=== PATIENT | male | born 1970 | race Caucasian/White ===

== ENCOUNTER 2018-03-04 08:27 | Observation (INO) | payer OTHER ==
[~2018-03-04] VITALS: Ht 177.8 cm; Wt 161.3 kg
[2018-03-04] MEDS ORDERED: ASPIRIN 325 MG TAB PO ONE (08:45)
[2018-03-04] MEDS ORDERED: NITROGLYCERIN 0.4 MG SUBL SL ONE (08:45)
[2018-03-04 09:01] LABS: BASOPHILS # (AUTO) 0.1 (0.0-0.1); BASOPHILS % 0.5 % (0.0-1.0); EOSINOPHILS # (AUTO) 0.3 (0.0-0.4); EOSINOPHILS % 2.5 % (0.0-6.0); HEMATOCRIT 42.8 % (38.2-49.6); HEMOGLOBIN 14.3 g/dL (14.0-18.0); LYMPHOCYTES # (AUTO) 2.3 (1.0-3.2); LYMPHOCYTES % 22.2 % (18.0-39.1); MEAN CORPUSCULAR HEMOGLOBIN 28.1 pg (28-32); MEAN CORPUSCULAR HGB CONC 33.4 g/dL (31-35); MEAN CORPUSCULAR VOLUME 84.1 fL (81-99); MONOCYTES # (AUTO) 0.8 (0.2-0.8); MONOCYTES % 7.4 % (4.4-11.3); NEUTROPHILS # (AUTO) 6.9 (2.1-6.9); PLATELET COUNT 230 x10e3/uL (140-360); RED BLOOD COUNT 5.09 x10e6/uL (4.3-5.7); RED CELL DISTRIBUTION WIDTH 12.8 % (11.7-14.4)
[2018-03-04] MEDS ORDERED: LISINOPRIL-HCT1 EACH PO (09:03)
[2018-03-04] MEDS ORDERED: PRILOSEC OTC20 MG PO (09:03)
[2018-03-04] MEDS ORDERED: ALEVE220 M1 PO (09:03)
[2018-03-04 09:14] LABS: ALANINE AMINOTRANSFERASE 25 IU/L (0-55); ALBUMIN 3.9 g/dL (3.5-5.0); ALBUMIN/GLOBULIN RATIO 0.9 (0.8-2.0); ALKALINE PHOSPHATASE 84 IU/L (40-150); ANION GAP 21.2 mmol/L (8-16); BLOOD UREA NITROGEN 18 mg/dL (7-26); BUN/CREATININE RATIO 17 (6-25); CALCIUM 8.9 mg/dL (8.4-10.2); CARBON DIOXIDE 18 mmol/L (22-29); CHLORIDE 99 mmol/L (98-107); CHOL/HDL RATIO 4.5 (3.9-4.7); CHOLESTEROL 220 MD/DL (0-199); CREATININE, SERUM 1.07 mg/dL (0.72-1.25); EST GLOMERULAR FILTRATION RATE > 60 ML/MIN (60-); GLUCOSE 115 mg/dL (74-118); HDL CHOLESTEROL 49 MG/DL (40-60); LDL CHOLESTEROL 130 MG/DL (60-130); POTASSIUM 4.2 mmol/L (3.5-5.1); SODIUM 134 mmol/L (136-145); TRIGLYCERIDES 204 MG/DL (0-149)
[2018-03-04 09:21] LABS: INR 0.99
--- NOTE | 2018-03-04 09:22 | Diagnostic Imaging Report ---
PROCEDURE: Frontal and lateral views of the chest. COMPARISON: None. INDICATIONS: CHEST PAIN, SHORTNESS OF BREATH FINDINGS: Lines/tubes: None. Lungs: Low lung volumes. There is no evidence of pneumonia or pulmonary edema. Pleura: There is no pleural effusion or pneumothorax. Heart and mediastinum: The cardiomediastinal silhouette is unremarkable. Bones: No acute bony abnormality. IMPRESSION: No acute radiographic abnormality. Dictated by: BEAU CHAPIN M.D. on 03/04/2018 at 9:30 Electronically approved by: BEAU CHAPIN M.D. on 03/04/2018 at 9:30
[2018-03-04] MEDS ORDERED: HYDROCODONE/APAP 5MG-325MG TAB PO ONE (10:00)
--- NOTE | 2018-03-04 12:56 | Diagnostic Imaging Report ---
EXAM: CT Chest WITH contrast 03/04/2018 9:26 AM INDICATION: \S\Rule out PE, D-Dimer >5000 \S\[id number] \S\1030 COMPARISON: Chest radiograph 03/04/2018 TECHNIQUE: Spiral CT images of the chest were performed from the lung apices through the level of the adrenal glands after the IV contrast administration. Thin section reconstructions were obtained with special concentration on the pulmonary arteries. IV CONTRAST: 100 mL of Isovue-370 ORAL CONTRAST: None COMPLICATIONS: None RADIATION DOSE: Total DLP: 595.8 mGy*cm Estimated effective dose: (DLP x 0.015 x size factor) mSv CTDIvol has been reviewed. It is below the limits set by the Radiation Protocol Committee (RPC). FINDINGS: LINES/ TUBES: None. PULMONARY ARTERIES: No filling defects are identified in the main, right or left pulmonary arteries to their segmental and subsegmental levels, to suggest pulmonary embolism. The main pulmonary artery is normal in size, measuring 2.4 cm in diameter. LUNGS AND AIRWAYS: Faint mosaic attenuation of the lungs. No consolidations or suspicious pulmonary nodules/masses. Mild central bilateral peribronchial wall thickening. Airways are normal. PLEURA: The pleural spaces are clear. HEART AND MEDIASTINUM: Mediastinal lipomatosis. The thyroid gland is normal. No mediastinal, hilar or axillary lymphadenopathy. The heart is normal in size. There is no pericardial effusion. The thoracic aorta and pulmonary arteries are unremarkable. UPPER ABDOMEN: Unremarkable. BONES: The visualized bony thorax is within normal limits. SOFT TISSUES: Unremarkable. IMPRESSION: No pulmonary embolism. Normal size of the main pulmonary artery. Faint mosaic attenuation of the lungs may reflect air trapping or pulmonary hypertension related to obstructing sleep apnea. Recommend ambulatory pulmonary consolidation. Signed by: Dr. Isabel Paris M.D. on 03/04/2018 12:53 PM
[2018-03-04] MEDS ORDERED: NITROGLYCERIN 0.4 MG SUBL SL PRN (13:15)
[2018-03-04] MEDS ORDERED: MORPHINE SULFATE 2 MG/ML SYR IV PRN (13:15)
[2018-03-04] MEDS ORDERED: ASPIRIN 81 MG CHEW TAB PO ONE (13:15)
[2018-03-04] MEDS ORDERED: ONDANSETRON HCL INJ 2 MG/ML VIAL IV PRN (13:15)
[2018-03-04] MEDS: FAMOTIDINE 20 MG TAB PO SCH (14:10)
[2018-03-04 15:32] VITALS: BP 135/79
[2018-03-04 15:33] VITALS: BP 135/79
[2018-03-04] MEDS ORDERED: KETOROLAC TROMETHAMINE 60 MG/2 ML VIAL IM ONE (17:15)
[2018-03-04] MEDS: NITROGLYCERIN 2% OINT 1 GM PKT TOP SCH (17:41)
[2018-03-04 20:00] VITALS: BP 113/60
[2018-03-04 20:09] LABS: CREATINE KINASE 78 IU/L (30-200)
[2018-03-04] MEDS ORDERED: SODIUM CHLORIDE 0.9% 50ML 50 ML ONE (20:27)
[2018-03-04] MEDS ORDERED: IOPAMIDOL 370 MG/ML 200 ML INFUS..BTL INJ ONE (20:27)
[2018-03-04] MEDS: SIMVASTATIN 40 MG TAB PO SCH (21:16)
[2018-03-05] VITALS (9 sets, daily range): BP systolic 97–139; BP diastolic 51–65
[2018-03-05] MEDS ORDERED: KETOROLAC TROMETHAMINE 30 MG/ML VIAL IM PRN
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
[2018-03-05] MEDS: NITROGLYCERIN 2% OINT 1 GM PKT TOP SCH ×4 (01:00→18:00)
[2018-03-05] MEDS: FAMOTIDINE 20 MG TAB PO SCH ×2 (01:15→12:46)
[2018-03-05 05:45] LABS: CREATINE KINASE 114 IU/L (30-200)
[2018-03-05 07:19] LABS: BASOPHILS # (AUTO) 0.1 (0.0-0.1); BASOPHILS % 0.6 % (0.0-1.0); EOSINOPHILS # (AUTO) 0.4 (0.0-0.4); EOSINOPHILS % 3.1 % (0.0-6.0); HEMATOCRIT 40.5 % (38.2-49.6); HEMOGLOBIN 13.3 g/dL (14.0-18.0); LYMPHOCYTES # (AUTO) 3.2 (1.0-3.2); LYMPHOCYTES % 27.7 % (18.0-39.1); MEAN CORPUSCULAR HEMOGLOBIN 28.2 pg (28-32); MEAN CORPUSCULAR HGB CONC 32.8 g/dL (31-35); MONOCYTES # (AUTO) 1.1 (0.2-0.8); MONOCYTES % 9.7 % (4.4-11.3); NEUTROPHILS # (AUTO) 6.7 (2.1-6.9); NEUTROPHILS % 58.5 % (38.7-80.0); PLATELET COUNT 246 x10e3/uL (140-360); RED BLOOD COUNT 4.71 x10e6/uL (4.3-5.7); RED CELL DISTRIBUTION WIDTH 12.8 % (11.7-14.4)
[2018-03-05] MEDS: ASPIRIN 81 MG ENTERIC COATED PO SCH (08:21)
[2018-03-05] MEDS ORDERED: REGADENOSON 0.4 MG/5 ML SYR IV ONE (10:46)
--- NOTE | 2018-03-05 13:38 | Consultation ---
DATE OF CONSULTATION: March 05, 2018 CARDIOLOGY CONSULTATION NOTE REASON FOR CONSULTATION: Chest pain. CHIEF COMPLAINT: Chest pain. HISTORY OF PRESENT ILLNESS: Patient is a 47-year-old man with history of unprovoked pulmonary embolism several years ago, was on warfarin anticoagulation for a period of time after that, but currently off anticoagulation as he was told that he was "better and did not required any more. He presents with left-sided chest pain that started suddenly 2 days ago. Denies any pleuritic component or any associated shortness of breath, says it feels like soreness on the inside of his chest. No change with exertion, no radiation. No change with breathing or with position. No prior history of coronary artery disease or any cardiac issues. Patient may risk factor is 20 plus pack year of smoking. PAST MEDICAL HISTORY: History of unprovoked pulmonary embolism. PAST SURGICAL HISTORY: None. FAMILY HISTORY: No family history of early CAD or sudden cardiac . SOCIAL HISTORY: Patient drinks socially and smokes 1 pack per week now. He used to smoke 2 packs per day several years ago. Denies any drug use. OUTPATIENT MEDICATIONS: Reviewed. REVIEW OF SYSTEMS: Ten-point review of systems was performed and is negative other than what is mentioned in the HPI. PHYSICAL EXAMINATION VITAL SIGNS: Temperature 97.3, pulse 76, respiratory rate 16, blood pressure 106/51, satting 96% on room air. GENERAL: Obese white man, in no acute distress. CARDIOVASCULAR: Regular rate and rhythm. No murmurs, rubs or gallops. Palpable carotid pulses. Palpable radial pulses. EXTREMITIES: No lower extremity edema or ulcerations. LUNGS: Clear to auscultation bilaterally. No respiratory distress. ABDOMEN: Very obese, soft, and nontender. No masses. NEURO AND PSYCH: Alert and oriented to person, place, and time. Normal affect. LABORATORY DATA: Reviewed. Cardiac enzymes negative times 3. D-diameter notable to be greater than 5000 and it is very high. IMAGING DATA: Reviewed. CT PE protocol negative for any pulmonary embolism. TELEMETRY DATA: Reviewed shows normal sinus rhythm. ASSESSMENT 1. Chest pain. 2. History of unprovoked pulmonary embolism. 3. Morbid obesity. 4. Tobacco abuse. PLAN: He has been ruled out for acute [place] and pulmonary embolism with serial cardiac enzymes as well as CT PE protocol. His history of unprovoked PE as well as extremely elevated d-dimer is concerning. He is intermediate risk for CAD given his extensive smoking history and atypical chest pain. We will re-stratify further with a nuclear stress test today. Echocardiogram is pending. His echo and nuclear stress test are normal unlikely to be a cardiac etiology, chest pain. Discussed with patient that he needs to be on long-term anticoagulation given his history of unprovoked pulmonary embolism as he is high risk for recurrence regardless if he has pulmonary embolism at this point. Agree with VQ scan to check for chronic pulmonary embolism given his previous history and elevated D-dimer. Thank you for this consult. We will continue to follow. Job#: [id number] NIKI
--- NOTE | 2018-03-05 15:17 | Progress Note ---
DATE: March 05, 2018 PULMONARY/CRITICAL CARE PROGRESS NOTE The patient feels better. His pain has subsided. He had a stress test and echocardiogram today that were negative. PHYSICAL EXAMINATION VITAL SIGNS: Stable. HEENT: No facial swelling or erythema. CARDIAC: Regular rate and rhythm with a normal S1 and S2. There are no murmurs or rubs. LUNGS: Auscultation of the lungs reveals clear breath sounds bilaterally. There is no wheezing. ABDOMEN: Soft and nontender. There is no rebound or guarding. EXTREMITIES: No leg edema or calf tenderness. IMPRESSION 1. Atypical chest pain. 2. Remote history of pulmonary embolism. PLAN 1. Patient should follow up with pulmonary or hematology as an outpatient. He should have a thrombophilia workup as well as a repeat D-dimer. 2. Nonsteroidal anti-inflammatory medications as needed for pain. 3. Repeat of the ventilation and perfusion scan is unlikely to be helpful at this time. The CT angiogram of the chest was negative and the pain is not characteristic of pulmonary embolism because it resolved within 24 hours without any anticoagulation. Job#: [id number] SMITA BEVERLY
[2018-03-05] MEDS: SIMVASTATIN 40 MG TAB PO SCH (21:15)
[2018-03-06] VITALS: BP 120/57
[2018-03-06] MEDS: FAMOTIDINE 20 MG TAB PO SCH (01:21)
[2018-03-06] MEDS: NITROGLYCERIN 2% OINT 1 GM PKT TOP SCH ×2 (01:21→06:00)
[2018-03-06 04:17] VITALS: BP 107/53
[2018-03-06 07:49] VITALS: BP 116/57
[2018-03-06 07:50] VITALS: BP 116/57
[2018-03-06] MEDS: ASPIRIN 81 MG ENTERIC COATED PO SCH (08:33)
--- NOTE | 2018-03-06 12:59 | Cardiology Report ---
DATE OF STUDY: March 06, 2018 PROCEDURE: Two-day stress/rest single-isotope SPECT imaging with pharmacologic stress and gated SPECT imaging. INDICATIONS: Chest pain. PROCEDURE: Pharmacologic stress testing was performed with regadenoson per protocol. The heart rate was 67 beats per minute and increased to 115 beats per minute during the pharmacologic infusion. The rest blood pressure was 141/81 and decreased to 130/70 mmHg, which is a normal response. The resting electrocardiogram demonstrated a normal sinus rhythm with old inferior infarct. There were no ST-segment changes consistent with myocardial ischemia. At peak exercise, patient was injected with 33 mCi of tetrofosmin. Gated poststress tomographic imaging was performed. The following day, myocardial perfusion imaging was performed at rest following the injection of 33 mCi of tetrofosmin. FINDINGS: The overall quality of the study is fair. Left ventricular cavity is noted to be normal size on the rest and stress studies. SPECT images demonstrate homogeneous tracer distribution throughout the myocardium. Gated SPECT imaging reveals normal myocardial thickening and wall motion. The left ventricular ejection fraction is calculated to be 65%. IMPRESSION: Myocardial perfusion imaging is normal. Overall left ventricular systolic function is normal without regional wall motion abnormalities. Job#: [id number]
--- NOTE | 2018-03-06 14:05 | Progress Note ---
DATE: March 06, 2018 CARDIOLOGY PROGRESS NOTE SUBJECTIVE: The patient denies chest pain or shortness of breath. He is eager to go home. OBJECTIVE: VITAL SIGNS: Temperature 98 degrees, pulse 72, respiratory rate 16, blood pressure 116/57, oxygen saturation 96% on room air. GENERAL: Obese gentleman in no acute distress. Awake and alert. LUNGS: Clear to auscultation bilaterally. No wheezes or crackles. CARDIOVASCULAR: Normal rate, regular rhythm. No murmur. Normal S1 and S2. ABDOMEN: Soft. Nontender. EXTREMITIES: No edema. CARDIAC MEDICATIONS 1. Aspirin 81 mg p.o. daily. 2. Simvastatin 40 mg p.o. nightly. LABS: None today. TELEMETRY: Normal sinus rhythm. IMPRESSION 1. Chest pain. 2. History of unprovoked pulmonary embolism. 3. Morbid obesity. 4. Tobacco use. RECOMMENDATIONS: The patient has ruled out for myocardial infarction with serial cardiac biomarkers. Nuclear stress test was without evidence of ischemia. The patient has also ruled out for pulmonary embolism with negative CTA of the chest. However, he does need further evaluation regarding his unprovoked pulmonary embolism in the past as well as elevated D-dimer. Continue current cardiac medications and risk factor modification. The patient should be discharged on statin therapy given his elevated LDL as well as risk factors. Please have the patient follow up with us in the office in 2 weeks. Thank you for this consult. We will continue to follow. Job#: [id number]
--- OUTSIDE RECORDS SUMMARY | 2018-03-11 12:24 | XMS REPORT ---
[facility] Address Unknown Phone Unavailable Care Team Providers Care Manager Custom Name Role Phone LARISSA MORAN Unavailable Unavailable Problems This patient has no known problems. Allergies, Adverse Reactions, Alerts This patient has no known allergies or adverse reactions. Medications This patient has no known medications. Results Test Description Test Time Test Comments Text Results Atomic Results Result Comments Stress Test - Treadmill ONLY 2018-03-06 12:26:00 [place] [address] Patient Name : DANIEL IBANEZ MR #: [id number] : 1970 Age/Sex: 47/M Adm Physician : LARISSA MORAN MD Admit Date : 03/04/18 Location : [facility] Room/Bed : [place] [address] REPORT: Cardiology Report DATE OF STUDY: March 06, 2018 PROCEDURE: Two-day stress/rest single- isotope SPECT imaging with pharmacologic stress and gated SPECT imaging. INDICATIONS: Chest pain. PROCEDURE: Pharmacologic stress testing was performed with regadenoson per protocol. The heart rate was 67 beats per minute and increased to 115 beats per minute during the pharmacologic infusion. The rest blood pressure was 141/81 and decreased to 130/70 mmHg, which is a normal response. The resting electrocardiogram demonstrated a normal sinus rhythm with old inferior infarct. There were no ST-segment changes consistent with myocardial ischemia. At peak exercise, patient was injected with 33 mCi of tetrofosmin. Gated poststress tomographic imaging was performed. The following day, myocardial perfusion imaging was performed at rest following the injection of 33 mCi of tetrofosmin. FINDINGS: The overall quality of the study is fair. Left ventricular cavity is noted to be normal size on the rest and stress studies. SPECT images demonstrate homogeneous tracer distribution throughout the myocardium. Gated SPECT imaging reveals normal myocardial thickening and wall motion. The left ventricular ejection fraction is calculated to be 65%. IMPRESSION: Myocardial perfusion imaging is normal. Overall left ventricular systolic function is normal without regional wall motion abnormalities. Job#: [id number] Signature Date Dictated By: LEYLA HOANG MD Transcribed By: EDS on 03/06/18 <Electronically signed by LEYLA HOANG MD><<Signature on File>>03/10/18 0048 COPY TO: CT CHEST W 2018-03-04 12:48:00 [place] [address] Patient Name: DANIEL IBANEZ MR #: [id number] : 1970 Age/Sex: 47/M Req #: [id number] [facility] Physician: Ordered by: SOWMYA LEE MD Report #: [id number] Location: ER Room/Bed: Procedure: [id number] CT/CT CHEST W Exam Date: 03/04/18 Exam Time: 1030 REPORT STATUS: Signed EXAM: CT Chest WITH contrast 03/04/2018 9:26 AM INDICATION: COMPARISON: Chest radiograph 03/04/2018 TECHNIQUE: Spiral CT images of the chest were performed from the lung apices through the level of the adrenal glands after the IV contrast administration. Thin section reconstructions were obtained with special concentration on the pulmonary arteries. IV CONTRAST: 100 mL of Isovue-370 ORAL CONTRAST: None COMPLICATIONS: None RADIATION DOSE: Total DLP: 595.8 mGy*cm Estimated effective dose: (DLP x 0.015 x size factor) mSv CTDIvol has been reviewed. It is below the limits set by the Radiation Protocol Committee (RPC). FINDINGS: LINES/ TUBES: None. PULMONARY ARTERIES: No filling defects are identified in the main, right or left pulmonary arteries to their segmental and subsegmental levels, to suggest pulmonary embolism. The main pulmonary artery is normal in size, measuring 2.4 cm in diameter. LUNGS AND AIRWAYS: Faint mosaic attenuation of the lungs. No consolidations or suspicious pulmonary nodules/masses. Mild central bilateral peribronchial wall thickening. Airways are normal. PLEURA: The pleural spaces are clear. HEART AND MEDIASTINUM: Mediastinal lipomatosis. The thyroid gland is normal. No mediastinal, hilar or axillary lymphadenopathy. The heart is normal in size. There is no pericardial effusion. The thoracic aorta and pulmonary arteries are unremarkable. UPPER ABDOMEN: Unremarkable. BONES: The visualized bony thorax is within normal limits. SOFT TISSUES: Unremarkable. IMPRESSION: No pulmonary embolism. Normal size of the main pulmonary artery. Faint mosaic attenuation of the lungs may reflect air trapping or pulmonary hypertension r elated to obstructing sleep apnea. Recommend ambulatory pulmonary consolidation. Signed by: Dr. Manuel Thompson M.D. on 03/04/2018 12:53 PM Dictated By: MANUEL THOMPSON MD 1253 Transcribed By: MECHELLE on 03/04/18 1253 COPY TO: SOWMYA LEE MD CHEST 2 VIEWS 2018-03-04 09:30:00 [place] [address] Patient Name: DANIEL IBANEZ MR #: [id number] : 1970 Age/Sex: 47/M Req #: [id number] Adm Physician: Ordered by: SOWMYA LEE MD Report #: [id number] Location: Room/Bed: Procedure: [id number] DX/CHEST 2 VIEWS Exam Date: 03/04/18 Exam Time: 904 REPORT STATUS: Signed PROCEDURE: Frontal and lateral views of the chest. COMPARISON: None. INDICATIONS: CHEST PAIN, SHORTNESS OF BREATH FINDINGS: Lines/tubes: None. Lungs: Low lung volumes. There is no evidence of pneumonia or pulmonary edema. Pleura: There is no pleural effusion or pneumothorax. Heart and mediastinum: The cardiomediastinal silhouette is unremarkable. Bones: No acute bony abnormality. IMPRESSION: No acute radiographic abnormality. Dictated by: BEAU CHAPIN M.D. on 03/04/2018 at 9:30 Electronically approved by: BEAU CHAPIN M.D. on 03/04/2018 at 9:30 Dictated By: BEAU CHAPIN MD 9 Transcribed By: DIANA on 03/04/18929 COPY TO: SOWMYA LEE MD
--- NOTE | 2018-04-30 01:31 | Discharge Summary ---
CHIEF COMPLAINT: Chest pain, hyperlipidemia. FINAL DIAGNOSES 1. Atypical chest pain. 2. Hyperlipidemia. 3. Hypertension. PROCEDURES: Lexiscan nuclear stress test. DISPOSITION: Home. A 47-year-old male, known history of GERD, essential systolic hypertension, brought to the ER with a 3-day history of steady and progressive left-sided chest pain, not related to activity or food ingestion, also not related to deep breathing. No nausea or vomiting. No fever or chills. Patient tends to have left anterior chest wall discomfort upon palpation. With further review of blood work and x-rays, admission was made for evaluation of left-sided chest pain, elevated D-dimer, questionable obstructive sleep apnea, left musculoskeletal chest pain. Will be addressing analgesic issues. Continue home medications. Will have a trial of Toradol. With admission, patient was being seen by cardiology. Recommendations were for a Lexiscan stress test. This was conducted on 03/05. Patient was receiving care in [facility], was resting comfortably, was being managed with a trial of Toradol. The patient was feeling much better with his administration, was having no shortness of breath, was initially placed n.p.o. Was also receiving aspirin 81 mg daily. Was getting [id number] severe pain control with morphine. Was placed on a nitroglycerin paste patch 1 g chest wall q.6 h along with nitroglycerin 0.4 mg sublingual q.5 minutes x3. Laboratory studies were showing stable electrolytes. Kidney functions stable. Glucose 115. CBC shows hemoglobin 13.3, white cell count 11,000. His cardiac enzymes remained unremarkable. As mentioned, his stress test was unremarkable. Was being cleared for discharge. His diet was upgraded to a 2-g sodium diet, which he was tolerating well. He was cleared by cardiology for discharge and was released home on 03/06/2018 in good condition. EKGs are showing normal sinus rhythm, inferior infarct age undetermined, anterior infarct age undetermined. Echocardiogram reveals an ejection fraction between 55% and 60%. No evidence of pericardial effusion. Was given pamphlets regarding angina upon discharge. He will continue his regular diet. No equipment or supplies yesterday necessary. Drains or [place] as needed. Activity as directed by me, as well as by cardiology. Patient will continue on 1. Lisinopril/hydrochlorothiazide 20 and 12.5 one tablet daily. 2. Aleve 220 mg 1 tablet daily. 3. Prilosec 20 mg daily. Report back to his PCP within 7 to 10 days. Following up with cardiology within 1 to 2 weeks. If symptoms were to redevelop, will be contacting his PCP as soon as possible for guidance. Dictated By: DANII Zavala Job#: [id number] CQ
== END 2018-03-06 13:54 | disposition home or self-care (01) ==
LOC: ER 08:27 → ERHOLD 13:15 → IMCU 14:59
DX: R07.89 Other chest pain (principal); E66.01 Morbid (severe) obesity due to excess calories; Z68.43 Body mass index [BMI] 50.0-59.9, adult; F17.210 Nicotine dependence, cigarettes, uncomplicated; I10 Essential (primary) hypertension; Z86.711 Personal history of pulmonary embolism; Z82.49 Family history of ischemic heart disease and other diseases of the circulatory system; K21.9 Gastro-esophageal reflux disease without esophagitis; Z88.8 Allergy status to other drugs, medicaments and biological substances; E78.5 Hyperlipidemia, unspecified
CPT/HCPCS: 36415 ×2; 71046; 71260; 78452; 80053; 80061; 82550 ×2; 82553 ×2; 83880; 84484 ×2; 85025 ×2; 85379; 85610; 93005; 93017; 93306; 99284; A9502; G0378 ×3; J1885; J2270; Q9967

== ENCOUNTER 2018-04-04 14:08 | Emergency (ER) | payer OTHER ==
[~2018-04-04] VITALS: Ht 177.8 cm; Wt 161.0 kg
[~2018-04-04 14:08] MED LIST: ALEVE220 M1 PO; LISINOPRIL-HCT1 EACH PO; PRILOSEC OTC20 MG PO
[2018-04-04] MEDS ORDERED: SODIUM CHLORIDE 0.9% 1000ML 1,000 ML IV STA (15:08)
[2018-04-04] MEDS ORDERED: COUMADIN1 MG PO (15:12)
[2018-04-04] MEDS ORDERED: VANCOMYCIN 1GM/NS 250 ML 250 ML IV ONE (15:15)
[2018-04-04] MEDS ORDERED: PIPER-TAZ 3.375 GM 50 ML IV ONE (15:15)
[2018-04-04] MEDS ORDERED: CLONIDINE HCL 0.1 MG TAB PO ONE (15:30)
[2018-04-04 15:51] LABS: BASOPHILS % 0.4 % (0.0-1.0); EOSINOPHILS # (AUTO) 0.2 (0.0-0.4); EOSINOPHILS % 2.1 % (0.0-6.0); HEMATOCRIT 43.3 % (38.2-49.6); LYMPHOCYTES # (AUTO) 2.3 (1.0-3.2); LYMPHOCYTES % 20.5 % (18.0-39.1); MEAN CORPUSCULAR HEMOGLOBIN 27.2 pg (28-32); MEAN CORPUSCULAR HGB CONC 32.3 g/dL (31-35); MEAN CORPUSCULAR VOLUME 84.2 fL (81-99); MONOCYTES % 8.4 % (4.4-11.3); NEUTROPHILS # (AUTO) 7.7 (2.1-6.9); NEUTROPHILS % 67.9 % (38.7-80.0); PLATELET COUNT 271 x10e3/uL (140-360); RED BLOOD COUNT 5.14 x10e6/uL (4.3-5.7); RED CELL DISTRIBUTION WIDTH 12.6 % (11.7-14.4)
[2018-04-04 16:08] LABS: INR 1.05; PROTHROMBIN TIME 14.7 seconds (11.9-14.5)
[2018-04-04 16:09] LABS: PARTIAL THROMBOPLASTIN TIME 30.2 seconds (23.8-35.5)
[2018-04-04 16:10] LABS: ALANINE AMINOTRANSFERASE 34 IU/L (0-55); ALBUMIN 3.3 g/dL (3.5-5.0); ALBUMIN/GLOBULIN RATIO 0.6 (0.8-2.0); ALKALINE PHOSPHATASE 85 IU/L (40-150); ANION GAP 15.5 mmol/L (8-16); BLOOD UREA NITROGEN 15 mg/dL (7-26); BUN/CREATININE RATIO 15 (6-25); CALCIUM 10.9 mg/dL (8.4-10.2); CARBON DIOXIDE 25 mmol/L (22-29); CHLORIDE 102 mmol/L (98-107); CREATINE KINASE 50 IU/L (30-200); CREATININE, SERUM 0.97 mg/dL (0.72-1.25); EST GLOMERULAR FILTRATION RATE > 60 ML/MIN (60-); GLUCOSE 99 mg/dL (74-118); MAGNESIUM 2.5 MG/DL (1.3-2.1); POTASSIUM 4.5 mmol/L (3.5-5.1); SODIUM 138 mmol/L (136-145)
[2018-04-04 17:19] LABS: BILIRUBIN,URINE 1+ (NEGATIVE); CLARITY,URINE SL CLOUDY (CLEAR); COLOR,URINE YELLOW (YELLOW); KETONES,URINE TRACE (NEGATIVE); LEUKOCYTE ESTERASE ,URINE NEGATIVE (NEGATIVE); NITRITE,URINE NEGATIVE (NEGATIVE); PROTEIN,URINE DIPSTICK 2+ (NEGATIVE); URINE UROBILINOGEN 0.2 mg/dL (0.2 - 1)
[2018-04-04 17:20] LABS: BACTERIA,URINE MODERATE /HPF; EPITHELIAL CELLS,URINE MODERATE /LPF
[2018-04-04 17:21] LABS: AMORPHOUS SEDIMENT,URINE MANY (FEW); MUCUS,URINE MODERATE (RARE)
[2018-04-04 19:57] VITALS: BP 147/108
== END 2018-04-04 20:08 | disposition home or self-care (01) ==
LOC: ER 14:08
DX: L03.115 Cellulitis of right lower limb (principal)
CPT/HCPCS: 36415; 80053; 81001; 82550; 82553; 83605; 83735; 84484; 85025; 85610; 85730; 87040; 87086; 93005; 93971; 99284; J2543; J3370; J7030